=== PATIENT | female | born 1975 | race Caucasian/White ===

== ENCOUNTER 2023-09-05 07:44 | Emergency (ER) | payer SELFPAY ==
[2023-09-05] MEDS ORDERED: Ibuprofen 800 MG TAB ONE (08:05)
[2023-09-05] MEDS ORDERED: Acetaminophen 500 MG TAB ONE (08:56)
[2023-09-05 08:59] LABS: SARS-CoV-2 NAA Rapid Test DETECTED (NotDetected)
== END 2023-09-05 09:51 | disposition home or self-care (01) ==
LOC: ERS 07:44
DX: U07.1 COVID-19 (principal); I10 Essential (primary) hypertension; Z20.822 Contact with and (suspected) exposure to COVID-19
CPT/HCPCS: 87081; 87430; 99283